=== PATIENT | female | born 1975 | race Caucasian/White ===

== ENCOUNTER 2020-12-01 15:06 | Emergency (ER) | payer OTHER ==
[2020-12-01 15:18] VITALS: BMI 29.2
[2020-12-01 16:23] LABS: HEMATOCRIT 39.8 % (32.4-45.2); HEMOGLOBIN 13.8 GM/dL (10.7-15.3); MCH 31.6 pg (25.7-33.7); MCHC 34.7 g/dl (32.0-36.0); MEAN CELL VOLUME 91.1 fl (80-96); MEAN PLT VOLUME 7.6 fl (7.5-11.1); PLATELET COUNT 336 K/MM3 (134-434); RBC 4.37 M/mm3 (3.60-5.2); RDW 12.5 % (11.6-15.6); WHITE BLOOD COUNT 10.9 K/mm3 (4.0-10.0)
[2020-12-01 16:46] LABS: CHLORIDE 105 mmol/L (98-107); POTASSIUM 3.4 mmol/L (3.5-5.1); SODIUM 138 mmol/L (136-145)
[2020-12-01 16:47] LABS: CALCIUM 9.3 mg/dL (8.5-10.1)
[2020-12-01 16:49] LABS: ALBUMIN 3.9 g/dl (3.4-5.0); ANION GAP 6 MMOL/L (8-16); BLOOD UREA NITROGEN 13.1 mg/dL (7-18); CO2 28 mmol/L (21-32); GLUCOSE,RANDOM 105 mg/dL (74-106)
[2020-12-01 16:52] LABS: BILIRUBIN,TOTAL 0.3 mg/dL (0.2-1); CREATININE 0.8 mg/dL (0.55-1.3); SGOT/AST 11 U/L (15-37); SGPT/ALT 22 U/L (13-61); TOT PROT 7.3 g/dl (6.4-8.2)
[2020-12-01 16:54] LABS: ALK PHOS 59 U/L (45-117)
[2020-12-01 17:07] VITALS: BP 124/85; PULSE 78; TEMP 98.2
== END 2020-12-01 17:54 | disposition home or self-care (01) ==
LOC: JER 15:06
DX: R42 Dizziness and giddiness (principal); Z11.52 Encounter for screening for COVID-19
CPT/HCPCS: 36415; 80053; 82550; 84484; 85027; 93005; 93010; 99284-25; C9803; U0003